=== PATIENT | male | born 1995 | race Asian ===

== ENCOUNTER 2021-10-28 17:36 | Emergency (ER) | payer OTHER ==
--- NOTE | 2021-10-28 18:08 | ED Physician Documentation ---
History of Present Illness - Stated complaint Stated Complaint: RIGHT FINGER LAC - Chief complaint Chief Complaint: Laceration - Additonal information Additional information: 25-year-old male presents emergency department for evaluation of acute right hand pain. Active duty [employer]. Was lifting some tires and felt pain on the dorsum of his hand over his ring finger. Found that he had an abrasion and bleeding. Tetanus is up-to-date. He is concerned that he could have fractured his hand though he denies actual trauma. Review of Systems Constitutional: denies: Fever, Chills Ears: reports: Reviewed and negative Nose: reports: Reviewed and negative Throat: reports: Reviewed and negative GI: reports: Reviewed and negative : reports: Reviewed and negative Skin: reports: Abrasion (s) Musculoskeletal: reports: Extremity pain PD PAST MEDICAL HISTORY - Past Medical History Past Medical History: No Cardiovascular: None Respiratory: None Neuro: None Endocrine/Autoimmune: None GI: None : None HEENT: None Psych: None Musculoskeletal: None Derm: None - Past Surgical History Past Surgical History: No - Present Medications Home Medications: Ambulatory Orders Medication Instructions Recorded Confirmed No Known Home Medications 10/28/21 10/28/21 - Allergies Allergies/Adverse Reactions: Allergies Allergy/AdvReac Type Severity Reaction Status Date / Time No Known Drug Allergies Allergy Verified 10/28/21 17:42 - Social History Does the pt smoke?: No Smoking Status: Never smoker Does the pt drink ETOH?: No Does the pt have substance abuse?: No - Immunizations Immunizations are current?: Yes PD ED PE NORMAL - General General: Alert and oriented X 3, No acute distress, Well developed/nourished - HEENT HEENT: PERRL - Cardiac Cardiac: RRR, No murmur, No gallop - Respiratory Respiratory: No respiratory distress, Clear bilaterally - Extremities Extremities: Other (abrasion dorsum right hand distal to right finger mcp. mild ecchymosis. normal grasp) - Neuro Neuro: Alert and oriented X 3, launch check out 2-12 intact Eye Opening: Spontaneous Motor: Obeys Commands Verbal: Oriented GCS Score: 15 Results - Vitals Vitals: Vital Signs - 24 hr 10/28/21 17:43 Temperature 36.4 C L Heart Rate 67 Respiratory 16 Rate Blood Pressure 133/86 H O2 Saturation 97 Oxygen O2 Source Room air - Rads (name of study) right hand Radiology: EMP read contemporaneously (No acute fracture or dislocation) PD MEDICAL DECISION MAKING - ED course Complexity details: reviewed results, re-evaluated patient, d/w patient ED course: Acute right hand pain when moving a tire at work. Patient is active duty [employer]. He has superficial abrasions on the dorsum of his hand most prominent over the ring finger just distal to the MCP joint. Normal movement and grasp. X-ray without acute findings. Abrasions cleansed with soap and water bacitracin applied. Routine wound care and emergent return precautions discussed. Departure - Departure Disposition: Home, Self Care Clinical Impression: Contusion of right hand including fingers Qualifiers: Encounter type: initial encounter Qualified Code(s): S60.221A - Contusion of right hand, initial encounter; S60.00XA - Contusion of unspecified finger without damage to nail, initial encounter Condition: Stable Record reviewed to determine appropriate education?: Yes Instructions: ED Contusion Hand Ch Comments: You are seen today in the emergency department for an abrasion on the top of your right hand over your fingers as well as some swelling. The x-ray does not show any broken bones. I recommend placing a small amount of any antibiotic ointment such as bacitracin or Neosporin over your abrasions and then a simple bandage. You can take Tylenol or ibuprofen [id number] for any discomfort. I would anticipate that your pain is markedly better over the next 3 to 5 days.
--- NOTE | 2021-10-28 18:14 | XRAY Report ---
PROCEDURE: Hand 2 View RT INDICATIONS: dropped tired on hand TECHNIQUE: 2 views of the hand(s) acquired. COMPARISON: None FINDINGS: Bones: No fractures or dislocations. No suspicious bony lesions. Soft tissues: No suspicious soft tissue calcifications. IMPRESSION: No fracture. No osseous lesion. If there are persistent symptoms or continued clinical concern for pa thology, then repeat plain film radiographs (7-10 days) or advanced imaging (CT, MR, bone scan) shoul d be considered for further evaluation. Reviewed by: Geetha Mondragon MD, PhD on 10/28/2021 6:12 PM PST Approved by: Geetha Mondragon MD, PhD on 10/28/2021 6:12 PM [facility] Station ID: [id number]
[2021-10-28 18:17] VITALS: BP 133/86
== END 2021-10-28 18:55 | disposition home or self-care (01) ==
LOC: ED 17:36
DX: S60.221A Contusion of right hand, initial encounter (principal); X50.0XXA Overexertion from strenuous movement or load, initial encounter
CPT/HCPCS: 99282; 99283